=== PATIENT | male | born 1950 | race Caucasian/White ===

== ENCOUNTER 2022-04-10 13:24 | Emergency (ER) | payer OTHER ==
[~2022-04-10] VITALS: Ht 188 cm; Wt 113.4 kg
[~2022-04-10 13:24] MED LIST: AMOCLA875 PO; ASPI325 PO; CILO50 PO; CLOP75 PO; CYAN1000 PO; FISH1000 PO; FLUO10 PO; IBUP800 PO; METO50 PO; NITR.4SL SL; OMEP20ER PO; Saw Palmetto450 MG PO; VITAMIN C500 MG PO; ZINC15 PO
[2022-04-10 13:48] LABS: BASOPHILS ABSOLUTE AUTO 0.06 K/mm3 (0.00-0.23); BASOPHILS PERCENT AUTO 1 % (0-2); EOSINOPHILS ABSOLUTE AUTO 0.17 K/mm3 (0.00-0.68); EOSINOPHILS PERCENT AUTO 2 % (0-6); Hematocrit 42.8 % (37.0-53.0); Hemoglobin 14.3 g/dL (13.5-17.5); IMMATURE GRAN ABSOLUTE AUTO 0.03 K/mm3 (0.00-0.10); IMMATURE GRAN PERCENT AUTO 0 % (0-1); LYMPHOCYTES ABSOLUTE AUTO 1.38 K/mm3 (0.84-5.20); LYMPHOCYTES PERCENT AUTO 14 % (21-46); MONOCYTES ABSOLUTE AUTO 0.61 K/mm3 (0.16-1.47); MONOCYTES PERCENT AUTO 6 % (4-13); Mean Corpuscular HGB 28.4 pg (26.0-34.0); Mean Corpuscular HGB Conc 33.4 g/dL (31.5-36.5); Mean Corpuscular Volume 85 fL (80-100); Mean Platelet Volume 11.6 fL (9.1-12.4); NEUTROPHILS ABSOLUTE AUTO 7.53 K/mm3 (1.96-9.15); NEUTROPHILS PERCENT AUTO 77 % (41-73); Platelet Count 161 K/mm3 (150-400); RDW Standard Deviation 43.6 fL (35.1-46.3); Red Blood Cell Count 5.03 M/mm3 (4.30-5.90); White Blood Cell Count 9.78 K/mm3 (4.00-11.30)
[2022-04-10 14:07] LABS: Albumin, Blood 3.5 g/dL (3.4-5.0); Bilirubin, Total 0.5 mg/dL (0.1-1.0); Bun/Creatinine Ratio 20.3 (12.0-20.0); Calcium, Blood 9.3 mg/dL (8.5-10.1); Creatinine, Blood 1.18 mg/dL (0.60-1.20); Globulin, Blood 3.4 g/dL (2.2-4.0); Total Protein, Blood 6.9 g/dL (6.4-8.2)
[2022-04-10 15:53] LABS: Magnesium, Blood 1.9 mg/dL (1.6-2.4)
[2022-04-10 15:54] LABS: Thyroid Stimulating Hormone 1.52 uIU/mL (0.360-4.800)
[2022-04-10] MEDS ORDERED: Lopressor 25 mg25 MG PO (17:07)
== END 2022-04-10 17:23 | disposition home or self-care (01) ==
LOC: ER 13:24
PROVIDERS: Emergency Medicine; Student in an Organized Health Care Education/Training Program
DX: I48.92 Unspecified atrial flutter (principal); I25.10 Atherosclerotic heart disease of native coronary artery without angina pectoris; I11.9 Hypertensive heart disease without heart failure; J44.9 Chronic obstructive pulmonary disease, unspecified; G47.33 Obstructive sleep apnea (adult) (pediatric); Z79.01 Long term (current) use of anticoagulants; Z79.82 Long term (current) use of aspirin; Z95.5 Presence of coronary angioplasty implant and graft; Z79.899 Other long term (current) drug therapy; Z88.2 Allergy status to sulfonamides; Z91.040 Latex allergy status; Z87.891 Personal history of nicotine dependence
CPT/HCPCS: 80053; 83735; 84443; 84484; 85025; 93005; 93010; 96374; 96376; 99285-25

== ENCOUNTER 2023-03-09 19:14 | Inpatient (IN) | payer OTHER ==
[2023-03-09] VITALS (10 sets, daily range): BP systolic 143–180; BP diastolic 88–118
[~2023-03-09] VITALS: Ht 193 cm; Wt 100.3 kg
[~2023-03-09 19:14] MED LIST changes: +B-12500 MC2 PO; -CYAN1000 PO; +Lopressor 25 mg25 MG PO
[2023-03-09 19:46] LABS: BASOPHILS ABSOLUTE AUTO 0.14 K/mm3 (0.00-0.23); BASOPHILS PERCENT AUTO 1 % (0-2); EOSINOPHILS ABSOLUTE AUTO 0.15 K/mm3 (0.00-0.68); EOSINOPHILS PERCENT AUTO 1 % (0-6); Hematocrit 33.5 % (37.0-53.0); Hemoglobin 11.6 g/dL (13.5-17.5); IMMATURE GRAN ABSOLUTE AUTO 0.04 K/mm3 (0.00-0.10); IMMATURE GRAN PERCENT AUTO 0 % (0-1); LYMPHOCYTES ABSOLUTE AUTO 2.41 K/mm3 (0.84-5.20); LYMPHOCYTES PERCENT AUTO 23 % (21-46); MONOCYTES ABSOLUTE AUTO 1.16 K/mm3 (0.16-1.47); MONOCYTES PERCENT AUTO 11 % (4-13); Mean Corpuscular HGB 28.7 pg (26.0-34.0); Mean Corpuscular HGB Conc 34.6 g/dL (31.5-36.5); Mean Corpuscular Volume 83 fL (80-100); NEUTROPHILS ABSOLUTE AUTO 6.65 K/mm3 (1.96-9.15); NEUTROPHILS PERCENT AUTO 63 % (41-73); Platelet Count 239 K/mm3 (150-400); RDW Coefficient Variation 12.8 % (11.7-14.2); RDW Standard Deviation 38.7 fL (35.1-46.3); Red Blood Cell Count 4.04 M/mm3 (4.30-5.90); White Blood Cell Count 10.55 K/mm3 (4.00-11.30)
[2023-03-09 19:59] LABS: Alanine Aminotransfer (ALT/SGP 37 U/L (12-78); Albumin, Blood 2.8 g/dL (3.4-5.0); Albumin/Globulin Ratio 0.8 (0.8-1.8); Alk Phos 60 U/L (50-136); Anion Gap 8 mmol/L (6-16); Aspartate Aminotrans (AST/SGOT 62 U/L (12-37); Bilirubin, Total 0.3 mg/dL (0.1-1.0); Blood Urea Nitrogen 39 mg/dL (8-24); Bun/Creatinine Ratio 22.3 (12.0-20.0); CO2, Blood 20 mmol/L (21-32); Calcium, Blood 9.1 mg/dL (8.5-10.1); Chloride, Blood 111 mmol/L (98-108); Cholesterol 145 mg/dL (50-200); Creatinine, Blood 1.75 mg/dL (0.60-1.20); Globulin, Blood 3.7 g/dL (2.2-4.0); Glomerular Filtration Rate 40 (60-); Glucose, Blood 150 mg/dL (70-99); HDL Cholesterol 24 mg/dL (>39); LDL/HDL RATIO 3.5; Low Density Lipoprotein Chol 85 mg/dL (0-110); Magnesium, Blood 2.3 mg/dL (1.6-2.4); Potassium, Blood 4.1 mmol/L (3.5-5.5); Sodium, Blood 139 mmol/L (136-145); Total Protein, Blood 6.5 g/dL (6.4-8.2); Triglycerides 181 mg/dL (30-160); Very Low Density Lipoprot Chol 36 mg/dL (6-32)
[2023-03-09 20:00] LABS: Calcium, Ionized (POC) 1.11 mmol/L (1.10-1.46); Chloride (POC) 107 mmol/L (98-108); Creatinine (POC) 1.9 mg/dL (0.8-1.3); Glucose (ISTAT POC) 142 mg/dL (70-99); Hemoglobin (POC) 11.6 g/dL (13.5-17.5); Sodium (POC) 139 mmol/L (135-148); Total CO2 (POC) 20 mmol/L (21-32)
--- NOTE | 2023-03-09 22:00 | NUR ---
PT ARRIVES TO ROOM ICU 3 FROM [employer] AT 2110 THIS EVENING. PT HAS TWO TR BANDS TO RIGHT RADIAL. NO S/S BLEEDING OR HEMATOMA. REPORT RECEIVED AT BEDSIDE. PT'S AND FAMILY FRIEND IN ROOM. PT HAS HAD SEVERAL ATTEMPTS TO VOID AND WAS UNSUCCESSFUL. PT ABLE TO DISCUSS HIS RECENT PROSTATE CANCER DIAGNOSIS. IS TO MEET WITH ONCOLOGY "NEXT SUNDAY" TO DISCUSS TREATMENTS. HAS HAD A INDWELLING CATHETER PLACED OUTSIDE OF FACILITY THAT HAD BEEN REMOVED APPROXIMATELY 3 DAYS PRIOR TO STEMI. AND PT STATE THAT HE HAS GONE THREE DAYS WITHOUT SLEEP SECONDARY TO MULTIPLE, FREQUENT ATTEMPTS TO VOID. DID DO BLADDER SCAN THAT REVEALED [address] DIAZ HAS COME TO BEDSIDE FOR ADMISSION PROCESS. PT IN SINUS TACH S/P PCI PLACEMENT. DR HAGER STOPS BY AND UPDATE GIVEN. WILL REVIEW CHART AND PLAN OF CARE FOR THIS PT.
[2023-03-09] MEDS ORDERED: METO50 PO (23:14)
[2023-03-09] MEDS ORDERED: ELIQUIS5 M2 PO (23:15)
[2023-03-10] VITALS (40 sets, daily range): BP systolic 98–166; BP diastolic 57–104
[2023-03-10 00:50] LABS: Source, Urine Foley catheter
[2023-03-10 00:54] LABS: Blood, Urine 5+ (Neg); Glucose Qualitative, Urine Neg (Neg); Ketones, Urine 1+ (Neg); Leukocyte Esterase, Urine 1+ (Neg); Nitrite, Urine Pos (Neg); Protein, Urine 4+ (Neg); Specific Gravity, Urine 1.015 (1.003-1.022); Urobilinogen, Urine 1+ (Normal); pH, Urine 6.5 (5.0-8.0)
[2023-03-10 00:55] LABS: Appearance, Urine Cloudy (Clear); Bilirubin, Urine 1+ (Neg); Color, Urine Brown (P-Yellow)
[2023-03-10 01:16] LABS: Bacteria Mod /hpf; Red Blood Cells, Urine TNTC /hpf (0-2); Squamous Epithelial Cells Rare /hpf (Few); White Blood Cells, Urine 25-50 /hpf (0-5)
--- NOTE | 2023-03-10 01:52 | NUR ---
PT HAS CONTINUED TO ATTEMPT TO VOID. THIS OCCURRING Q 5-10 MINUTES. STATED THAT THIS WAS PAINFUL, AND THAT HE COULD NOT START FLOW. DID PLACE 14 YAKUT COUDE EARLIER WITH RETURN OF RUST COLORED URINE. OPTED TO LEAVE CATHETR RATHER THAN SERIAL STRAIGHT CATHS SECONDARY TO NEW PROSTATE CANCER DIAGNOSIS AND NOT WANTING TO TRAUMATIZE AREA. PT AND HIS TOTALLY AGREED WITH PLAN OF CARE. ORDERS FROM DR JUDD. POST THAO, PT STATES THAT THE PAIN IS COMPLETELY RELIEVED, AND HAS BEEN ABLE TO REST. HAVE BEGUN THE PROCESS OF DEFLATION OF TR BANDS. NO OOZING OR HEMATOMA TO NOTED. OF NOTE: PT HAD COMPLAINT OF CHEST "BURNING" THAT COMPLETELY RESOLVED AFTER CATHETER WAS PLACED. URINE SAMPLE SENT TO LAB FOR CULTURE. NO FURTHER CHEST PAIN OR PRESSURE. WILL CONTINUE TO MONITOR PT,
[2023-03-10 05:06] LABS: Albumin, Blood 2.6 g/dL (3.4-5.0); Albumin/Globulin Ratio 0.7 (0.8-1.8); Bilirubin, Total 0.4 mg/dL (0.1-1.0); Bun/Creatinine Ratio 23.1 (12.0-20.0); Calcium, Blood 8.6 mg/dL (8.5-10.1); Creatinine, Blood 1.69 mg/dL (0.60-1.20); Globulin, Blood 3.5 g/dL (2.2-4.0); Potassium, Blood 4.6 mmol/L (3.5-5.5); Total Protein, Blood 6.1 g/dL (6.4-8.2)
--- NOTE | 2023-03-10 06:14 | NUR ---
PT CONTINUES WITHOUT COMPLAINTS OF CHEST PAIN. ONLY SLIGHT TENDERNESS TO LOWER ABDOMEN. THAO CONTINUES WITH HEMATURIA URINE OUTPUT. PT HAS BEEN ABLE TO REST DURING THE NIGHT. DOES HAVE SOME INDIGESTION THIS MORNING. IS TO RECEIVE DOSE OF PEPCID THIS MORNING. EKG DONE. RIGHT RADIAL SITE WNL. MILD ECCHYMOSIS NOTED. NO HEMATOMA OR OOZING TO NOTE. SITE COVERED WITH TEGRADERM. ARMBOARD IN PLACE TO PROTECT SITE. TEACHING DONE ON RESTRICTIONS TO RIGHT WRIST. PT VERBALIZES UNDERSTANDING. WILL CONTINUE TO MONITOR PT AND WILL REPORT OFF TO ONCOMING RN.
--- NOTE | 2023-03-10 10:51 | NUR ---
AFTER WAS IN TO SEE ALCIDES, HE WAS VERY ADAMANT THAT HE WANTED THE CATHETER REMOVED, HE WAS VERY UNCOMFORTABLE AND VERY UNHAPPY WITH IT. HE HAS SINCE VOIDED A COUPLE OF TIMES, SMALL AMOUNTS ONLY. HIS AND ANOTHER ARE HERE VISITING.
--- NOTE | 2023-03-10 16:24 | NUR ---
ALCIDES HAS CONTINUED TO DENY ANY CHEST PAIN OR SYMPTOMS R/T HIS CHEST PAIN EXPERIENCED YESTERDAY. HE HAS BEEN ABLE TO VOID SEVERAL TIMES TODAY, USUALLY AROUND 100ML AND BLOOD TINGED. HE CONTINUES TO HAVE PAIN TO THE TYRONE AREA, HE ADJUSTS HIS POSITION NEEDED. HE CONTINUES WITH ABDOMINAL DISCOMFORT AND NO DESIRE TO EAT ANYTHING. HE DOES REPORT THAT THIS HAS BEEN ONGOING SINCE BEFORE THE STEMI. HE HAS BEEN WORKING ON DRINKING WATER, DID HAVE A BIT OF A VANILLA MILK SHAKE WELL. TRYING TO SLEEP IN BETWEEN VISITORS.
--- NOTE | 2023-03-10 20:30 | NUR ---
ASSUMED CARE OF PT AT 1900. REPORT RECEIVED. PT PRESENTS IN BED. ALERT AND ORIENTED. PLEASANT AND COOPERATIVE WITH CARE AND ASSESSMENT. DENIES ANY COMPLAINTS OF CHEST PAIN OR PRESSURE. NO GI UPSET. PT UP TO BEDSIDE COMMODE INDEPENDENTLY, AND VOIDS SMALL AMOUNTS OF FRANCISCA URINE. NO CLOTS NOTED. RIGHT RADIAL ACCESS SITE WNL. NO HEMATOM OR OOZING TO NOTE.
[2023-03-11] VITALS: BP 128/89
--- NOTE | 2023-03-11 02:57 | NUR ---
PT HAS BEEN ABLE TO GET UP TO BEDSIDE COMMODE INDEPENDENTLY TO VOID. PT DENIES ANY RETENTION ISSUES. NO COMPLAINTS OF CHEST PAIN OR PRESSURE. MILD COMPLAINT OF INDIGESTION. WILL CONTINUE TO MONITOR PT.
[2023-03-11 04:00] VITALS: BP 140/80
[2023-03-11 04:45] LABS: BASOPHILS ABSOLUTE AUTO 0.11 K/mm3 (0.00-0.23); BASOPHILS PERCENT AUTO 1 % (0-2); EOSINOPHILS ABSOLUTE AUTO 0.08 K/mm3 (0.00-0.68); EOSINOPHILS PERCENT AUTO 1 % (0-6); Hematocrit 30.2 % (37.0-53.0); IMMATURE GRAN ABSOLUTE AUTO 0.04 K/mm3 (0.00-0.10); IMMATURE GRAN PERCENT AUTO 0 % (0-1); LYMPHOCYTES ABSOLUTE AUTO 0.94 K/mm3 (0.84-5.20); LYMPHOCYTES PERCENT AUTO 10 % (21-46); MONOCYTES ABSOLUTE AUTO 0.75 K/mm3 (0.16-1.47); MONOCYTES PERCENT AUTO 8 % (4-13); Mean Corpuscular HGB 27.9 pg (26.0-34.0); Mean Corpuscular HGB Conc 33.1 g/dL (31.5-36.5); Mean Corpuscular Volume 84 fL (80-100); Mean Platelet Volume 10.7 fL (9.1-12.4); NEUTROPHILS ABSOLUTE AUTO 7.93 K/mm3 (1.96-9.15); NEUTROPHILS PERCENT AUTO 81 % (41-73); Platelet Count 149 K/mm3 (150-400); RDW Coefficient Variation 13.1 % (11.7-14.2); RDW Standard Deviation 40.1 fL (35.1-46.3); Red Blood Cell Count 3.58 M/mm3 (4.30-5.90); White Blood Cell Count 9.85 K/mm3 (4.00-11.30)
[2023-03-11 05:06] LABS: Albumin, Blood 2.5 g/dL (3.4-5.0); Albumin/Globulin Ratio 0.7 (0.8-1.8); Bilirubin, Direct 0.1 mg/dL (0.0-0.3); Bilirubin, Indirect 0.3 mg/dL (0.1-0.7); Bilirubin, Total 0.4 mg/dL (0.1-1.0); Bun/Creatinine Ratio 25.5 (12.0-20.0); Calcium, Blood 8.9 mg/dL (8.5-10.1); Creatinine, Blood 1.65 mg/dL (0.60-1.20); Globulin, Blood 3.4 g/dL (2.2-4.0); Potassium, Blood 4.8 mmol/L (3.5-5.5); Total Protein, Blood 5.9 g/dL (6.4-8.2)
[2023-03-11 05:25] VITALS: BP 125/100
--- NOTE | 2023-03-11 06:28 | NUR ---
Transfer note. Pt transferred from the IC to room [id number]. Pt was oriented to room and call light system. VSS. Pt has been able to ambulate into the bathroom with minimal assistance. Pt is able to make needs known, call light is within reach.
[2023-03-11 09:07] VITALS: BP 125/61
--- NOTE | 2023-03-11 09:43 | NUR ---
PT REFUSED ALL BUT HIS PROTONIX THIS AM. PT STS THAT HIS BLOOD PRESSURE IS LOWER THAN HE WOULD LIKE TO HAVE HIS BP MEDICATIONS ADMINISTERED, HIS BP IS WITHIN PARAMETERS TO ADMINISTER, BUT THEY ARE HELD PER HIS REFUSAL. PT ALSO REFUXED PLAVIX, THEN WENT TO RESTROOM TO URINATE THEN SHOWS THIS RN THAT HE HAS HAD BLOODY URINE AND WAS DIAGNOSED WITH PROSTATE CANCER ON SUNDAY. HE REPORTS THAT HE WAS TOLD BY HIS ONCOLOGIST NOT TO TAKE ANY BLOOD THINNERS TO INCULDE PLAVIX, HE IS EDUCATED IN LENGTH ABOUT THE NEED FOR PLAVIX HE EXPRESSED AN UNDERSTANDING AND STATED "I HOPE THE DR ALSO UNDERSTANDS WHERE I AM COMING FROM HERE". HE REPORTS HX OF STENTS IN THE PAST AND STATES THAT HE FULLY UNDERSTANDS THE RISK OF NOT TAKING IT.
--- NOTE | 2023-03-11 11:31 | NUR ---
DR HAGER TO BEDSIDE TO FURTHER EDUCATE PT ON PLAVIX AND ASPIRIN PT IS NOW AGREEABLE TO TAKE ASPIRIN
[2023-03-11 11:34] VITALS: BP 147/94
[2023-03-11] MEDS ORDERED: ATOR40TA PO (13:11)
[2023-03-11] MEDS ORDERED: CLOP75 PO (13:11)
[2023-03-11] MEDS ORDERED: ASPI81CH PO (13:11)
[2023-03-11] MEDS ORDERED: FAMO20 PO (13:11)
[2023-03-11] MEDS ORDERED: LISI5 PO (13:12)
--- NOTE | 2023-03-11 15:28 | NUR ---
IVs REMOVED AND PRESSURE DRESSED. PT AND FAMILY EXPRESSED UNDERSTANDING OF DC TEACHING AND DENY FURTHER NEEDS. RX ARE FAXED TO [facility] IT IS A HOLIDAY WEEKEND, [facility]
[2023-03-12] MEDS ORDERED: CEFP200 PO (10:12)
== END 2023-03-11 14:30 | disposition home or self-care (01) | DRG 246 ==
LOC: ER 19:14 → ICUE 19:46 → PCU 03-11 05:29
PROVIDERS: Emergency Medicine; Family Medicine; Internal Medicine Interventional Cardiology; Student in an Organized Health Care Education/Training Program; ADMIT Internal Medicine
PROC: 027034Z Dilation of Coronary Artery, One Artery with Drug-eluting Intraluminal Device, Percutaneous Approach (ICD-10-PCS; principal; 2023-03-09)
PROC: 4A023N7 Measurement of Cardiac Sampling and Pressure, Left Heart, Percutaneous Approach (ICD-10-PCS; 2023-03-09)
PROC: B211YZZ Fluoroscopy of Multiple Coronary Arteries using Other Contrast (ICD-10-PCS; 2023-03-09)
PROC: 5A12012 Performance of Cardiac Output, Single, Manual (ICD-10-PCS; 2023-03-09)
PROC: 0T9B70Z Drainage of Bladder with Drainage Device, Via Natural or Artificial Opening (ICD-10-PCS; 2023-03-09)
DX: T82.855A Stenosis of coronary artery stent, initial encounter (principal); I21.19 ST elevation (STEMI) myocardial infarction involving other coronary artery of inferior wall; I49.01 Ventricular fibrillation; N17.9 Acute kidney failure, unspecified; I47.20 Ventricular tachycardia, unspecified; I48.92 Unspecified atrial flutter; I48.20 Chronic atrial fibrillation, unspecified; R31.9 Hematuria, unspecified; N18.30 Chronic kidney disease, stage 3 unspecified; D63.1 Anemia in chronic kidney disease; I48.0 Paroxysmal atrial fibrillation; I25.10 Atherosclerotic heart disease of native coronary artery without angina pectoris; E78.5 Hyperlipidemia, unspecified; I12.9 Hypertensive chronic kidney disease with stage 1 through stage 4 chronic kidney disease, or unspecified chronic kidney disease; J44.9 Chronic obstructive pulmonary disease, unspecified; G47.33 Obstructive sleep apnea (adult) (pediatric); D69.6 Thrombocytopenia, unspecified; Z91.199 Patient's noncompliance with other medical treatment and regimen due to unspecified reason; Z88.2 Allergy status to sulfonamides; Z91.040 Latex allergy status; Z79.899 Other long term (current) drug therapy; Z85.46 Personal history of malignant neoplasm of prostate; Z79.82 Long term (current) use of aspirin; I25.2 Old myocardial infarction; Z90.49 Acquired absence of other specified parts of digestive tract; Z95.5 Presence of coronary angioplasty implant and graft; Z87.891 Personal history of nicotine dependence
CPT/HCPCS: 51703; 76937; 80047; 80048; 80053; 80061; 80076; 81001; 83735; 84484; 85014; 85025; 86850; 86900; 86901; 87086; 92950; 93005; 93010; 93306; 93454; 96374-59; 96375-59; 96376-59; 99152; 99153; 99291-25; A9270; C1725; C1769; C1874; C1887; C1894; C9600; C9606; J0282; J0461; J1644; J2250; J2405; J3010; J3246; J7030; J7050; J7060; Q9967

== ENCOUNTER 2023-03-12 08:14 | Emergency (ER) | payer OTHER ==
[~2023-03-12] VITALS: Ht 188 cm; Wt 108.9 kg
[~2023-03-12 08:14] MED LIST changes: +ASPI81CH PO; +ATOR40TA PO; +ELIQUIS5 M2 PO; +FAMO20 PO; +LISI5 PO
[2023-03-12 09:11] LABS: Source, Urine Foley catheter
[2023-03-12 09:16] LABS: Appearance, Urine Cloudy (Clear); Blood, Urine 5+ (Neg); Color, Urine Amber (P-Yellow); Glucose Qualitative, Urine Neg (Neg); Ketones, Urine 1+ (Neg); Leukocyte Esterase, Urine 2+ (Neg); Nitrite, Urine Pos (Neg); Protein, Urine 3+ (Neg); Urobilinogen, Urine 1+ (Normal)
[2023-03-12 09:23] LABS: Bilirubin, Urine 1+ (Neg)
[2023-03-12 09:24] LABS: Red Blood Cells, Urine TNTC /hpf (0-2)
[2023-03-12 09:26] LABS: Bacteria Many /hpf; Squamous Epithelial Cells Not Seen /hpf (Few); White Blood Cells, Urine 50-100 /hpf (0-5)
[2023-03-12] MEDS ORDERED: CEFP200 PO (10:12)
[2023-03-12 10:45] VITALS: BP 152/87
== END 2023-03-12 11:39 | disposition home or self-care (01) ==
LOC: ER 08:14
PROVIDERS: Emergency Medicine
DX: N39.0 Urinary tract infection, site not specified (principal); R31.9 Hematuria, unspecified; R33.9 Retention of urine, unspecified; Z85.46 Personal history of malignant neoplasm of prostate; Z88.2 Allergy status to sulfonamides; Z91.040 Latex allergy status; Z79.82 Long term (current) use of aspirin; Z79.02 Long term (current) use of antithrombotics/antiplatelets; Z79.899 Other long term (current) drug therapy; I25.2 Old myocardial infarction; E78.5 Hyperlipidemia, unspecified; I10 Essential (primary) hypertension; J44.9 Chronic obstructive pulmonary disease, unspecified; G47.33 Obstructive sleep apnea (adult) (pediatric); Z87.891 Personal history of nicotine dependence
CPT/HCPCS: 51702; 81001; 87086; 99283-25; A9270